=== PATIENT | male | born 1995 | race Caucasian/White ===

== ENCOUNTER 2018-04-19 10:46 | Emergency (ER) | payer MEDICAID ==
--- NOTE | 2018-04-19 10:49 | EDPHY ---
H & P Time Seen by Provider: 04/19/18 10:49 Constitutional: Initial Vital Signs Temperature (C) 36.9 C 04/19/18 10:48 Heart Rate 67 04/19/18 10:48 Respiratory Rate 18 04/19/18 10:48 Blood Pressure 127/79 H 04/19/18 10:48 O2 Sat (%) 100 04/19/18 10:48 O2 Delivery Mode Room Air Allergies/Adverse Reactions: No Known Allergies Allergy (Unverified 04/19/18 10:52) Home Medications: Medication Instructions Recorded NK [No Known Home Meds] 04/19/18 Medical Decision Making ED Course/Re-evaluation: CHIEF COMPLAINT: Heroin abuse HISTORY OF PRESENT ILLNESS: 22-year-old male whose uses heroin. He admitted to last using it at 4:00 a.m. This past morning. He admitted to his svp chief marketing officer that he use tear when his svp chief marketing officer wants him to go through detox. He has been through detox before. He cm for medical clearance before [facility] REVIEW OF SYSTEMS: A comprehensive 10 system review of systems is otherwise negative aside from elements mentioned in the history of present illness and medical decision making. PHYSICAL EXAM: HR, BP, O2 Sat, RR. Temp noted General Appearance: Alert, well hydrated, appropriate, and non-toxic appearing. Somewhat dirty and unkept Head: Atraumatic without scalp tenderness or obvious injury Eyes: Pupils equal, round, reactive to light and accommodation, EOMI, no trauma , no injection. Ears: Clear bilaterally, no perforation, normal landmarks Nose: Atraumatic, no rhinorrhea, clear. Throat: There is no erythema or exudates, no lesions, normal tonsils, mucus membranes moist. Neck: Supple, 2+ carotid upstroke, nontender, no lymphadenopathy. Respiratory: No retractions, no distress, no wheezes, and no accessory muscle use. Lungs are clear to auscultation bilaterally. Cardiovascular: Regular rate and rhythm, no murmurs, rubs, or gallops. Bilateral carotid, radial, dorsalis pedis, and posterior tibial pulses intact. Good capillary refill all extremities. Gastrointestinal: Abdomen is soft, nontender, non-distended, no masses, no rebound, no guarding, no peritoneal signs. Musculoskeletal: Normal active ROM of all extremities, atraumatic. Neurological: Alert, appropriate, and interactive. The patient has normal DTRs and non-focal cranial nerves, motor, sensory, and cerebellar exam. Skin: No rashes, good turgor, no nodules on palpation. Past medical history: Drug abuse Past surgical history: None Family history: Noncontributory Social history: Single, not employed, on parole, smokes cigarettes, abuses heroin, uses alcohol on occasion DIAGNOSTICS/PROCEDURES/CRITICAL CARE TIME: None indicated DIFFERENTIAL DIAGNOSIS: Includes but is not limited to: Trauma, infection, drug withdrawal, metabolic derangement MEDICAL DECISION MAKING: This patient is medically cleared to go to [facility]. Departure - Departure Disposition: Home, Routine, Self-Care Clinical Impression: Heroin abuse Condition: Good Instructions: Narcotic Abuse (ED) Referrals: NONE *PRIMARY CARE P,. [Primary Care Provider] - As per Instructions
[2018-04-19 11:27] VITALS: BP 112/71
== END 2018-04-19 11:27 | disposition home or self-care (01) ==
DX: F11.10 Opioid abuse, uncomplicated (principal); F17.200 Nicotine dependence, unspecified, uncomplicated

== ENCOUNTER 2018-05-13 00:16 | Emergency (ER) | payer MEDICAID ==
[2018-05-13 00:24] VITALS: BP 145/93
--- NOTE | 2018-05-13 00:36 | EDPHY ---
H & P Stated Complaint: clear for alf no complaints Time Seen by Provider: 05/13/18 00:25 HPI/ROS: Chief Complaint: Arm bleeding, med clearance for alf HPI: 22-year-old IV drug user being brought in by police for med clearance for alf. Patient states that he was being chased by the police and he was tackled very during the tackle he scraped off a scab on his right arm. He denies any other injuries. No bony tenderness. He has been ambulating without any difficulty. Admits to mostly IV heroin occasional methamphetamine use. No fevers or chills. No swelling or redness. He most recently used this evening. Patient states that the multiple abrasions he has on his face and arms are secondary to his picking from his drug use. He denies any injuries. ROS: 10 systems were reviewed and were negative except those elements noted in the HPI. PMH: IV drug use Social History: No smoking, no alcohol, chronic IV heroin abuser Family History: non-contributory Physical Exam: Gen: Awake, Alert, Airway Intact HEENT: Head: Atraumatic Eyes: PERRLA, EOMI Nose: No epistaxis Mouth: Normal dentition, Airway patent Face: Multiple healing scabs, no erythema Neck: non-tender, no stepoff, Full ROM without pain Chest: non-tender, lungs CTA Heart: normal heart tones Abd: soft, non-tender, atraumatic Pelvis: non-tender, stable to AP and Lateral compression Back: atraumatic, no midline tenderness Ext: Patient has a bleeding scab on his right forearm. There is no erythema. There is no deep laceration. There is no tenderness. There is no deformity, full ROM Skin: Patient has multiple healing scabs on his face and arms secondary to picking. There is no erythema or warmth or other findings suggestive of infection. Neuro: CN II-XII intact, Strength 5/5 in all extremities, sensation intact in all extremities - Personal History Current Tetanus/Diphtheria Vaccine: Yes Current Tetanus Diphtheria and Acellular Pertussis (TDAP): Yes - Medical/Surgical History Hx Asthma: No Hx Chronic Respiratory Disease: No Hx Diabetes: No Hx Cardiac Disease: No Hx Renal Disease: No Hx Cirrhosis: No Hx Alcoholism: No Hx HIV/AIDS: No Hx Splenectomy or Spleen Trauma: No Other PMH: daily heroin use. meth. ankylosing spondy - Social History Smoking Status: Heavy smoker Constitutional: Initial Vital Signs Temperature (C) 36.9 C 05/13/18 00:20 Heart Rate 135 H 05/13/18 00:20 Respiratory Rate 18 05/13/18 00:20 Blood Pressure 145/93 H 05/13/18 00:20 O2 Sat (%) 96 05/13/18 00:20 O2 Delivery Mode Room Air Allergies/Adverse Reactions: No Known Allergies Allergy (Unverified 04/19/18 10:52) Home Medications: Medication Instructions Recorded NK [No Known Home Meds] 04/19/18 Medical Decision Making ED Course/Re-evaluation: 22-year-old male brought in for med clearance for alf. He has a small abrasion on his right forearm. Otherwise he has no injuries or complaints. He has had a bandage placed on his arm. He is medically clear for alf at this time. Departure - Departure Disposition: Home, Routine, Self-Care Clinical Impression: Abrasion Condition: Good Instructions: Abrasion (ED) Additional Instructions: Return to the emergency department for increasing redness, discharge from the wound, fevers, or any other concerns. MEDICALLY CLEAR FOR NURSING HOME Referrals: NONE *PRIMARY CARE P,. [Primary Care Provider] - As per Instructions
== END 2018-05-13 00:53 ==
DX: S40.811A Abrasion of right upper arm, initial encounter (principal); W03.XXXA Other fall on same level due to collision with another person, initial encounter; Y93.02 Activity, running; F15.90 Other stimulant use, unspecified, uncomplicated; F11.90 Opioid use, unspecified, uncomplicated